=== PATIENT | female | born 1985 | race Caucasian/White ===

== ENCOUNTER 2016-05-14 18:15 | Emergency (ER) | END 2016-05-14 22:30 | disposition home or self-care (01) | DX: R07.89 Other chest pain (principal) | CPT/HCPCS: 71010; 93005; Z7502 ==

== ENCOUNTER 2017-05-12 11:02 | Emergency (ER) | END 2017-05-12 11:23 | disposition home or self-care (01) ==

== ENCOUNTER 2018-03-14 10:37 | Outpatient (CLI) | END 2018-03-14 15:15 | disposition home or self-care (01) ==

== ENCOUNTER 2018-03-15 18:25 | Inpatient (IN) | END 2018-03-16 16:00 | disposition home or self-care (01) | DRG 833 ==

== ENCOUNTER 2018-03-31 20:35 | Outpatient (CLI) | END 2018-03-31 22:59 | disposition home or self-care (01) ==

== ENCOUNTER 2018-04-21 00:20 | Inpatient (IN) | payer MEDICAID ==
[~2018-04-21] VITALS: Ht 149.9 cm; Wt 77.8 kg
[~2018-04-21 00:20] MED LIST: PREN1TAB79 PO
[2018-04-21 00:42] VITALS: BP 113/64; PULSE 74; RESP 18
[2018-04-21] MEDS ORDERED: LACTATED RINGER'S 1,000 ML IV PRN (01:15)
[2018-04-21] MEDS ORDERED: LIDOCAINE 1% (MPF) 30 ML INJ INJ PRN (01:30)
[2018-04-21] MEDS ORDERED: OXYTOCIN 30 UNITS/LR 500 ML IV SCH ×4 (01:30→06:49)
[2018-04-21] MEDS ORDERED: CARBOPROST 250 MCG INJ IM PRN ×2 (01:30→07:00)
[2018-04-21] MEDS ORDERED: METHYLERGONOVINE 0.2 MG INJ IM PRN ×2 (01:30→07:00)
[2018-04-21] MEDS ORDERED: OXYTOCIN 30 UNITS/LR 500 ML IV PRN ×2 (01:30→07:00)
[2018-04-21] MEDS ORDERED: IBUPROFEN 600 MG TAB PO PRN (01:30)
[2018-04-21] MEDS ORDERED: MISOPROSTOL 200 MCG TAB PR PRN ×2 (01:30→07:00)
[2018-04-21] MEDS: LACTATED RINGER'S 1,000 ML IV SCH ×2 (01:49→02:07)
[2018-04-21] MEDS: BUTORPHANOL 2 MG INJ IV PRN ×2 (03:19→05:25)
--- NOTE | 2018-04-21 06:53 | LDN ---
Date/Time of Note Date/Time of Note DATE: 04/21/18 TIME: 06:52 Delivery Summary of a viable baby boy weighing 3560 grams or 7# 14 oz, 19.5" long, and with Apgars of 8/9. Weeks of Gestation 39w 1d Placenta Delivered: Spontaneously Meconium: none Episiotomy: No Perineal laceration: 0 Anesthesia type: None Estimated blood loss: 150 Sponge & Needle done & correct: Yes All needle counts correct: Yes Any foreign bodies felt in the: No (vagina) Infant Delivery Information Sex Infant Sex: male Apgars 1 Minute: 8 5 Minute: 9 Suctioning Nose & mouth suctioned at mayda: Yes Delee suction performed: No Umbilical Cord Umbilical cord with: 3 Vessels Cord presentations: nuchal cord Nuchal cord present X: 1 Cord Blood was obtained: Yes Mother & Baby Disposition Disposition Mom & Baby to Maternity; Good: Yes Baby to NICU: No BRENDON GONZALEZ MD Apr 21, 2018 06:53
[2018-04-21] MEDS ORDERED: OXYTOCIN 30 UNITS/LR 500 ML IV ONE (06:55)
--- NOTE | 2018-04-21 06:57 | HP ---
Date/Time of Note Date/Time of Note DATE: 04/21/18 TIME: 06:54 OB - History Hx of Present Free Text/Dictation 30 y.o. with an IUP at 39w 1d came in with SROM and an initial exam of 70% /3 cm/-2 at 0022. Estimated Due Date: Apr 27, 2018 : 3 Para: 2 Care: Limited Care (entry at 33 weeks.) Ultrasounds: Normal mid trimester US Obstetrical Complications: None Medical Complications: None Other Concerns: PMHx: none. PSHx: none. NKDA Past Family/Social History * Past Medical, Surgical, Family and Obstetric Histories reviewed from chart. Blood Type: O+ Rubella: not immune (equivocal) RPR/VDRL: Negative GBS Status: Negative HBsAG: Negative OB Admission Exam Vital Signs Vital Signs Vital Signs Date Temp Pulse Resp B/P (MAP) Pulse Ox O2 O2 Flow FiO2 Time Delivery Rate 04/21/18 98.5 74 18 113/64 Room Air 00:42 (80) Physical Exam HEENT: WNL Heart: Rhythm Normal Lungs: Clear Abdomen: WNL Extremities: Normal Reflexes: Normal Cervical Dilatation: 3cm Effacement: 75% Station: -2 Membranes: Ruptured Amniotic Fluid: Clear Heart Rate: 140's Accelerations: Accelerations Present Decelerations: No Decelerations Varibility: Moderate Contractions on Admission: < 5 Minutes Apart Intensity: Moderate Last 72 hours Lab Results CBC & BMP 04/21/18 01:45 OB Assessment/Plan Reason for admission: active labor Other Assessment: SROM. Desires BTL. Consent signed 03/13. Plan: Expectant Management Other plan: Post BTL, if possible. BRENDON GONZALEZ MD Apr 21, 2018 06:57
[2018-04-21] MEDS ORDERED: LANOLIN HPA 1 PKT TOP PRN (07:00)
[2018-04-21] MEDS ORDERED: HYDROCODONE/APAP (5/325) TAB PO PRN (07:00)
[2018-04-21 08:50] VITALS: BP 106/70; PULSE 70; RESP 18
[2018-04-21] MEDS: PRENATAL VITAMIN PO SCH (09:50)
[2018-04-21 10:45] VITALS: BP 118/64; RESP 18
[2018-04-21] MEDS: LACTATED RINGER'S 1,000 ML IV* SCH ×3 (12:00→22:49)
[2018-04-21] MEDS: IBUPROFEN 600 MG TAB PO SCH ×3 (14:31→23:44)
--- NOTE | 2018-04-21 14:42 | QN ---
Documentation Comment Called by Nurse to evaluate the patient for Hemorrhage Around 150 cc clots removed from Lower uterine segment and cervix No more Vaginal bleeding 1000 mg Cytotec given Stat CBC sent ZAHRA CARTER M.D. Apr 21, 2018 14:42
[2018-04-21] MEDS: OXYTOCIN 30 UNITS/LR 500 ML IV SCH ×4 (14:47→22:43)
[2018-04-21 14:50] VITALS: BP 117/64; PULSE 78; RESP 18
[2018-04-21 16:00] VITALS: BP 117/64; PULSE 71; RESP 18
[2018-04-21 20:00] VITALS: BP 110/66; PULSE 74; RESP 18
[2018-04-22] MEDS: OXYTOCIN 30 UNITS/LR 500 ML IV SCH ×4 (03:27→15:30)
[2018-04-22 04:00] VITALS: BP 111/55; PULSE 79; RESP 19
[2018-04-22] MEDS: IBUPROFEN 600 MG TAB PO SCH ×4 (05:59→23:20)
[2018-04-22] MEDS: LACTATED RINGER'S 1,000 ML IV* SCH ×2 (07:50→14:49)
[2018-04-22 08:00] VITALS: BP 97/54; PULSE 64; RESP 18
[2018-04-22] MEDS: PRENATAL VITAMIN PO SCH (09:00)
[2018-04-22 15:37] VITALS: BP 97/53; PULSE 75; RESP 18
[2018-04-22 20:00] VITALS: BP 110/70; PULSE 82
--- NOTE | 2018-04-23 01:11 | PN ---
Date/Time of Note Date/Time of Note DATE: 04/23/18 TIME: 01:09 OB Subjective Subjective Subjective Late entry note. Patient seen on 04/22/2018 PPD# 1 Patient is doing well. She denies nausea, vomiting, shortness of breath, chest pain, headache. She has been ambulating without difficulty, tolerating regular diet. Pain is well controlled on current medications OB Objective Objective Objective Vital Signs Date Temp Pulse Resp B/P (MAP) Pulse Ox O2 O2 Flow FiO2 Time Delivery Rate 04/22/18 98.5 82 110/70 Room Air 20:00 (83) 04/22/18 18 15:37 General: AAO X 3, comfortable, NAD, appropriate mood and affect. ABD: +BS. Soft, non-tender. Uterus 2 cm below umbilicus Flank: No CVA tenderness (B/L) LE: Mild edema. No clubbing, cyanosis, thigh or calf tenderness (B/L). Homans 'sign is negative OB Assessment/Plan Other plan: 30-year-old s/p normal vaginal delivery at 39 weeks and 1 day. PPD#1 - AF, VSS - Baby is doing well, at bed side. She is bonding well - Contraception methods with R/B/A/FR discussed - Continue care - Discharge home tomorrow - Rx and instruction given - Follow up in 2 and 6 weeks at clinic MILA SINGLETON Apr 23, 2018 01:11
--- NOTE | 2018-04-23 01:12 | DS ---
Date/Time of Note Date/Time of Note DATE: 04/23/18 TIME: 01:11 Obstetrical Discharge Record Final Diagnosis Final Diagnosis: Term delivered Other Final Diagnosis 30-year-old s/p normal vaginal delivery at 39 weeks and 1 day. PPD#2. course was unremarkable. She is ambulating and tolerating regular diet. She is voiding without difficulty. Pain is controlled on current medication - AF, VSS - Baby is doing well, at bed side. She is bonding well - Contraception methods with R/B/A/FR discussed - Continue care - Discharge home tomorrow - Rx and instruction given - Follow up in 2 and 6 weeks at clinic Vaginal Delivery Obstetrical Delivery: Spontaneous Condition on Discharge Physical Assessment Voiding: Yes Bowel Movement: Yes Breast: Soft, non-tender Fundus: Firm Calf Tenderness: No Patient Condition: Stable MILA SINGLETON Apr 23, 2018 01:12
[2018-04-23 04:00] VITALS: BP 103/55; RESP 18
[2018-04-23] MEDS: IBUPROFEN 600 MG TAB PO SCH ×2 (05:34→12:34)
[2018-04-23 08:10] VITALS: BP 104/66; PULSE 83; RESP 18
[2018-04-23] MEDS: PRENATAL VITAMIN PO SCH (08:24)
[2018-04-23] MEDS ORDERED: DIPHTH/TET/ACEL PERTUSS (ADULT) 0.5 ML VIAL IM* ONE (09:00)
[2018-04-23 15:20] VITALS: BP 106/73; PULSE 99; RESP 20
== END 2018-04-23 17:12 | disposition home or self-care (01) | DRG 807 ==
LOC: L-D 00:20 → OBT 00:20 → L-D 00:56 → PP1 08:48
PROVIDERS: ADMIT Obstetrics & Gynecology; ATTEND Obstetrics & Gynecology
PROC: 10E0XZZ Delivery of Products of Conception, External Approach (ICD-10-PCS; principal; 2018-04-21)
PROC: 3E033VJ Introduction of Other Hormone into Peripheral Vein, Percutaneous Approach (ICD-10-PCS; 2018-04-21)
DX: O69.81X0 Labor and delivery complicated by cord around neck, without compression, not applicable or unspecified (principal); Z37.0 Single live birth; Z3A.39 39 weeks gestation of pregnancy
CPT/HCPCS: 85025; 85610; 85730; 86592; 86850; 86900; 86901; 90715; G0463; J0595; J2590; J7120

== ENCOUNTER 2018-09-02 12:17 | Day surgery (SDC) | payer MEDICAID ==
[2018-09-01 15:13] VITALS: BMI 28.8
[2018-09-02] VITALS (13 sets, daily range): BP systolic 98–119; BP diastolic 54–61; PULSE 77–92; RESP 15–22; Ht 152.4 cm; Wt 68.4 kg
[~2018-09-02] VITALS: Ht 152.4 cm; Wt 68.4 kg
[~2018-09-02 12:17] MED LIST changes: +CEFAZOLIN 2 GM/50 ML (PMX) 50 ML IVPB SCH; +LACTATED RINGER'S 1,000 ML IV SCH
[2018-09-02] MEDS ORDERED: BUPIVACAINE 0.5%/EPI (SDV) 30 ML INJ ONE (15:05)
--- NOTE | 2018-09-02 15:14 | PREAC ---
Date/Time of Note Date/Time of Note DATE: 09/02/18 TIME: 15:11 Anesthesia Eval and Record Evaluation Time Pre-Procedure Interview DATE: 09/02/18 TIME: 15:11 Age 30 Sex female NPO: 8 hrs Preoperative diagnosis multiparity desires strilization Planned procedure BTL Past Medical History Past Medical History: None Surgery & Anesthesia Issues No known issue Meds Anticoagulation: No Beta Kathy within 24 hr: No Reason Beta Kathy not given: Other (not ordered) Discontinued Reported Medications Vit W-Ca,Fe,FA(<1 mg) ( Vitamins) 1 Each Tablet, 1 EACH PO 03/14/18 Current Medications Lactated Ringer's 1,000 ml @ 125 mls/hr Q8H IV ; Start 09/02/18 at 06:00; Stop 09/02/18 at 17:00 Cefazolin Sodium/ Dextrose 50 ml @ 100 mls/hr PREOP IVPB ; Start 09/02/18 at 06:00; Stop 09/02/18 at 17:00 Meds reviewed: Yes Allergies Coded Allergies: No Known Drug Allergy (Verified Allergy, Mild, 09/02/18) Allergies Reviewed: Yes Labs/Studies Labs Reviewed: Reviewed by anesthesiologist test: Negative Pre-procedure Exam Last vitals Vital Signs Date Temp Pulse Resp B/P (MAP) Pulse Ox O2 O2 Flow FiO2 Time Delivery Rate 09/02/18 98.3 77 16 100/55 97 Room Air 13:09 (70) Airway: Adequate mouth opening Mallampati: Mallampati II Teeth: Normal Lung: Normal Heart: Normal ASA Physical Status ASA physical status: 1 Emergency: None Planned Anesthetic General/MAC: ETT Pre-operative Attestations Prior to commencing anesthesia and surgery, the patient was re-evaluated, there was verification of: *The patient's identity *The results of appropriate recent lab work and preoperative vital signs *The above evaluation not changing prior to induction *Anesthetic plan, risk benefits, alternative and complications discussed with patient/family; questions answered; patient/family understands, accepts and wishes to proceed. HEIDI PACHECO MD September 02, 2018 15:14
--- NOTE | 2018-09-02 15:18 | PAC ---
Date/Time of Note Date/Time of Note DATE: 09/02/18 TIME: 15:17 Post-Anesthesia Notes Post-Anesthesia Note Last documented vital signs Vital Signs Date Temp Pulse Resp B/P (MAP) Pulse Ox O2 O2 Flow FiO2 Time Delivery Rate 09/02/18 98.3 77 16 100/55 97 Room Air 13:09 (70) Activity: WNL Respiratory function: WNL Cardiovascular function: WNL Mental status: Baseline Pain reasonably controlled: Yes Hydration appropriate: Yes Nausea/Vomiting absent: Yes HEIDI PACHECO MD September 02, 2018 15:18
[2018-09-02] MEDS ORDERED: NEOSTIGMINE 3 MG/3 ML SYRINGE ONE (15:22)
[2018-09-02] MEDS ORDERED: FENTAnyl 50 MCG/ML VIAL ONE (15:22)
[2018-09-02] MEDS ORDERED: ROCURONIUM 50 MG INJ ONE (15:22)
[2018-09-02] MEDS ORDERED: PROPOFOL 20 ML ONE (15:22)
[2018-09-02] MEDS ORDERED: MIDAZOLAM 1 MG/ML 2 ML INJ ONE ×2 (15:22→16:22)
[2018-09-02] MEDS ORDERED: GLYCOPYRROLATE 0.4 MG INJ ONE (15:22)
[2018-09-02] MEDS ORDERED: LIDOCAINE 100 MG SYRINGE ONE (15:22)
[2018-09-02] MEDS ORDERED: ONDANSETRON 4 MG INJ IV PRN (15:30)
[2018-09-02] MEDS ORDERED: HYDROmorphONE 1 MG/5 ML IV SYRINGE IV PRN (15:30)
[2018-09-02] MEDS ORDERED: MIDAZOLAM 1 MG/ML 2 ML INJ IV PRN (15:30)
[2018-09-02] MEDS ORDERED: LABETALOL HCL 20MG INJ IV PRN (15:30)
[2018-09-02] MEDS ORDERED: hydrALAzine 20 MG INJ IV PRN (15:30)
[2018-09-02] MEDS ORDERED: EPHEDrine 25 MG/5 ML SYG IV PRN (15:30)
[2018-09-02] MEDS ORDERED: MEPERIDINE 25 MG INJ IV PRN (15:30)
[2018-09-02] MEDS ORDERED: METOCLOPRAMIDE 10 MG INJ IV PRN (15:30)
[2018-09-02] MEDS ORDERED: ONDANSETRON 4 MG INJ ONE (16:00)
[2018-09-02] MEDS ORDERED: DEXAMETHASONE 4 MG/ML 5 ML INJ ONE (16:00)
[2018-09-02] MEDS ORDERED: METOCLOPRAMIDE 10 MG INJ ONE (16:17)
--- NOTE | 2018-09-02 18:21 | OPR ---
Date/Time of Note Date/Time of Note DATE: 09/02/18 TIME: 18:19 Operative Report Procedure Date: September 02, 2018 Preoperative Diagnosis Desires permanent sterilization Postoperative Diagnosis Same Operation/Procedure Performed Laparoscopic bilateral salpingectomies Surgeon Juan Ruiz MD [employer] Operations [employer] none Anesthesia Type: general Estimated Blood Loss: minimal Transfusion none Specimen segments of both tubes Grafts/Implants none Tubes/Drains none Complications none Pt Condition Post Procedure: stable Disposition: PACU Procedure Description FINDINGS: Normal tubes, ovaries bilaterally. Normal uterus. CONSENT: Please see my preop H and P consent in the office for the consent process. DESCRIPTION OF PROCEDURE: She was taken to operating room and general anesthesia was induced. She was prepped and draped in the usual sterile fashion in dorsal lithotomy position. Surgical time-out was done. Anterior lip of the cervix was grasped using a single-tooth tenaculum, and a HUMI was inserted in normal fashion. The tenaculum was removed. There was no bleeding from the cervix. The patient already had a Doran catheter as well. Gloves were changed. A 5 mm incision was developed inside the umbilicus. A blunt trocar was inserted in the normal fashion. Intraperitoneal position was confirmed using the laparoscope. Pneumoperitoneum was obtained. The patient was placed in T rendelenburg position. A second trocar was inserted under direct visualization of the laparoscope at the pubic hairline in the midline. Right tube was coagulated and transected 7 cm medial to fimbriated portion of the tube. Right salpingectomy was performed by coagulating and transecting the mesosalpinx while at all times hugging the tube. The tube was removed and sent to pathology. the edges of the mesosalpinx was not bleeding, but for abundance of precaution, I cauterized the edges of the mesosalpinx again. There was no bleeding. Same procedure was done on the contralateral side. All instruments removed under direct visualization of the laparoscope after pneumoperitoneum was released. There was no bleeding. Skin closed using 4-0 Monocryl. Then 10 mL 0.25% Marcaine with epinephrine was injected at the incision sites. HUMI was removed. There was no bleeding from the vagina. Patient tolerated the procedure well. JUAN RUIZ MD September 02, 2018 18:21
== END 2018-09-02 18:07 | disposition home or self-care (01) ==
LOC: SDS 12:17
PROVIDERS: ATTEND Specialist
DX: Z30.2 Encounter for sterilization (principal)
CPT/HCPCS: 58661; J1100; J2001; J2250; J2405; J2710; J2765; J3010; Z7512; Z7610; 88302